=== PATIENT | male | born 1950 | race African-American/Black ===

== ENCOUNTER 2018-04-23 09:42 | Inpatient (IN) | payer OTHER, MEDICAID ==
[~2018-04-23] VITALS: Ht 175.3 cm; Wt 108.9 kg
[~2018-04-23 09:42] MED LIST: AMLO10TA2; AMLO5TAB2 PO; ASPI81CH43 GT; ATOR40TA52; DICL1GEL26; ESCI20TA51 PO; HYDR25TA4 PO; INSLANTI SC; INSU100I4 SC; INSUINJ37; LOSA50TA6 PO; PREG200C19 PO; PREG225C; TRAM50TA2
[2018-04-23] MEDS ORDERED: FUROSEMIDE 20 MG/2 ML VIAL IV ONE (10:15)
[2018-04-23 10:47] LABS: Basophils # (auto) 0 uL; Eosinophils # (auto) 0.3 uL; Lymphocytes # (auto) 1.2 uL; Monocytes # (auto) 0.8 uL; Nucleated Red Blood Cells % 0.1 %
[2018-04-23 10:49] LABS: Basophils % (auto) 0.5 % (0.0-2.0); Eosinophils % (auto) 4.2 % (0.0-7.0); Hematocrit 41.7 % (41.0-53.0); Hemoglobin 13.6 g/dL (13.5-17.5); Lymphocytes % (auto) 18.4 % (10.0-50.0); Mean Corpuscular Hemoglobin 25.5 pg (28.0-32.0); Mean Corpuscular Hgb Conc. 32.5 g/dL (32.0-36.0); Mean Corpuscular Volume 78.5 fL (80.0-100.0); Monocytes % (auto) 12.3 % (0.0-12.0); Neutrophils # (auto) 4.1 uL; Neutrophils % (auto) 64.6 % (37.0-80.0); Platelet Count (auto) 194 10^3/uL (140-450); Red Blood Cells 5.31 10^6/uL (4.5-5.90); Red Cell Distribution Width 16.9 % (11.8-14.3); White Blood Cell 6.3 10^3/uL (4.4-10.8)
[2018-04-23 11:02] LABS: INR 0.95 (0.9-1.15); Partial Thromboplastin Time 28.5 sec (23.78-33.04); Prothrombin Time 10.2 sec (9.27-12.13)
[2018-04-23 12:53] LABS: Urine Bacteria NONE SEEN /hpf (None Seen); Urine Blood Negative /uL (Negative); Urine Specific Gravity 1.006 (1.001-1.035); Urine WBC <1 /hpf (0 - 3)
[2018-04-23] MEDS ORDERED: MORPHINE SULF INJ 2 MG/ML SYRINGE 1ML IV PRN (14:45)
[2018-04-23] MEDS ORDERED: TEMAZEPAM 15 MG CAP PO PRN (14:45)
[2018-04-23] MEDS ORDERED: NITROGLYCERIN 0.4 MG SL TAB SL PRN (14:45)
[2018-04-23] MEDS ORDERED: DOCUSATE SOD 100 MG CAP PO PRN (14:45)
[2018-04-23] MEDS ORDERED: ONDANSETRON HCL 4 MG/2 ML VIAL IV PRN (14:45)
[2018-04-23] MEDS ORDERED: DEXTROSE (50%) 50ML SYRG IV PRN (14:45)
[2018-04-23] MEDS ORDERED: traMADol HCL 50 MG TAB PO PRN (15:00)
[2018-04-23 15:41] LABS: Alanine Aminotransferase 77 U/L (16-61); Albumin 3.5 g/dL (3.4-5.0); Alkaline Phosphatase 121 U/L (45-117); Anion Gap 8 (5-15); Aspartate Aminotransferase 41 U/L (15-37); BUN/Creatinine Ratio 14.7; Bilirubin, Total 0.9 mg/dL (0.2-1.0); Blood Urea Nitrogen 23 mg/dL (7-18); Calcium 8.4 mg/dL (8.5-10.1); Carbon Dioxide 24 mmol/L (21-32); Chloride 107 mmol/L (98-107); GFR African American 57 mL/min; GFR Non-African American 47 mL/min; Glucose 190 mg/dL (74-106); Potassium 3.7 mmol/L (3.5-5.1); Sodium 139 mmol/L (136-145); Total Protein 7.1 g/dL (6.4-8.2)
[2018-04-23] MEDS: SIMETHICONE 80 MG CHEWABLE TABLET PO PRN (16:31)
[2018-04-23] MEDS: ACCU-CHEK COMFORT CURVE STRIP VI SCH ×2 (16:34→22:54)
[2018-04-23] MEDS: InsuLIN REG 1unit/0.01ml Soln (100units/ml) SC SCH ×2 (16:34→22:54)
[2018-04-23 17:00] VITALS: BP 147/95
[2018-04-23 18:20] VITALS: BP 146/73
[2018-04-23] MEDS: BUDESONIDE (INHALATION) 0.5 MG/2 ML NEB NEB SCH (18:45)
[2018-04-23] MEDS: ALBUTEROL SULF 2.5 MG/0.5ML(0.5%) NEB SOLN NEB SCH (18:45)
[2018-04-23] MEDS: SODIUM CHLOR 0.9% PF (SALINE LOCK) 10ML VIAL/SYR IV SCH (22:40)
[2018-04-23] MEDS: FAMOTIDINE 20 MG TAB PO SCH (22:54)
[2018-04-23] MEDS: INSULIN LANTUS (GLARGINE) 1 /0.01ml (100units/ml) SC SCH (22:54)
[2018-04-23] MEDS: ATORVASTATIN 20 MG TAB PO SCH (22:54)
[2018-04-23] MEDS: ASCORBIC ACID 500 MG TAB PO SCH (22:54)
[2018-04-23] MEDS: PREGABALIN CAPSULE 75 MG CAP PO SCH (22:54)
[2018-04-23 22:56] VITALS: BP 168/75
[2018-04-24 04:28] VITALS: BP 156/73
[2018-04-24 04:46] VITALS: BP 144/56
[2018-04-24 05:02] LABS: Eosinophils # (auto) 0.3 uL; Monocytes # (auto) 0.8 uL; Neutrophils # (auto) 3.5 uL; Nucleated Red Blood Cells % 0.1 %
[2018-04-24 05:04] LABS: Basophils # (auto) 0.1 uL; Basophils % (auto) 0.9 % (0.0-2.0); Eosinophils % (auto) 6.1 % (0.0-7.0); Hematocrit 37.9 % (41.0-53.0); Hemoglobin 12.7 g/dL (13.5-17.5); Lymphocytes % (auto) 17.8 % (10.0-50.0); Mean Corpuscular Hgb Conc. 33.6 g/dL (32.0-36.0); Mean Corpuscular Volume 77.4 fL (80.0-100.0); Monocytes % (auto) 14.5 % (0.0-12.0); Neutrophils % (auto) 60.7 % (37.0-80.0); Platelet Count (auto) 177 10^3/uL (140-450); Red Cell Distribution Width 16.2 % (11.8-14.3); White Blood Cell 5.7 10^3/uL (4.4-10.8)
[2018-04-24 05:22] LABS: Albumin 2.7 g/dL (3.4-5.0); BUN/Creatinine Ratio 17.9; Calcium 7.9 mg/dL (8.5-10.1); Potassium 3.9 mmol/L (3.5-5.1)
[2018-04-24 05:25] LABS: Bilirubin, Total 0.8 mg/dL (0.2-1.0); Total Protein 6.1 g/dL (6.4-8.2)
[2018-04-24] MEDS: SODIUM CHLOR 0.9% PF (SALINE LOCK) 10ML VIAL/SYR IV SCH ×3 (06:17→22:40)
[2018-04-24] MEDS: InsuLIN REG 1unit/0.01ml Soln (100units/ml) SC SCH ×4 (06:17→22:39)
[2018-04-24] MEDS: ACCU-CHEK COMFORT CURVE STRIP VI SCH ×4 (06:17→22:39)
[2018-04-24] MEDS: BUDESONIDE (INHALATION) 0.5 MG/2 ML NEB NEB SCH ×2 (06:36→18:17)
[2018-04-24] MEDS: ALBUTEROL SULF 2.5 MG/0.5ML(0.5%) NEB SOLN NEB SCH ×5 (06:36→23:55)
[2018-04-24 08:00] VITALS: BP 116/54
[2018-04-24] MEDS: ZINC SULFATE 220 MG CAP PO SCH (10:00)
[2018-04-24] MEDS: POTASSIUM CHL 10 Meq TABLET PO SCH (10:00)
[2018-04-24] MEDS: MULTIPLE VITAMIN TAB PO SCH (10:00)
[2018-04-24] MEDS: LOSARTAN POTASSIUM 50 MG TAB PO SCH (10:00)
[2018-04-24] MEDS: ASCORBIC ACID 500 MG TAB PO SCH ×2 (10:00→22:37)
[2018-04-24] MEDS: PREGABALIN CAPSULE 75 MG CAP PO SCH ×2 (10:00→22:00)
[2018-04-24 12:00] VITALS: BP 136/53
[2018-04-24] MEDS ORDERED: LIDOCAINE 2% (LOCAL ANESTH.) PF 5ml SDV ONE (13:18)
[2018-04-24] MEDS ORDERED: fentaNYL CITRATE 100 MCG/2 ML VL ONE (13:27)
[2018-04-24] MEDS ORDERED: MIDAZOLAM HCL 1MG/1ML-2 ML VIAL ONE (13:27)
[2018-04-24] MEDS ORDERED: ceFAZolin 1GM/50ML 50 ML IV ONE (13:27)
[2018-04-24] MEDS ORDERED: VANCOMYCIN HCL 1000 MG VL ONE (13:27)
[2018-04-24] MEDS ORDERED: VANCOMYCIN 1GM/250ML 250 ML IV ONE (13:27)
[2018-04-24] MEDS ORDERED: methylPREDNISolone SOD SUCC 125 MG/2 ML VL ONE (13:31)
[2018-04-24] MEDS ORDERED: diphenhdrAMINE HCL 50 MG/1 ML VL ONE (13:31)
[2018-04-24] MEDS ORDERED: FAMOTIDINE (10MG/ML) 2ML VL IV ONE (13:32)
[2018-04-24 15:59] VITALS: BP 136/72
[2018-04-24] MEDS: FAMOTIDINE 20 MG TAB PO SCH ×2 (18:02→22:37)
[2018-04-24] MEDS: amLODIPine BESYLATE 5 MG TAB PO SCH (18:04)
[2018-04-24] MEDS: HCTZ 25 MG TAB PO SCH (18:04)
[2018-04-24 19:52] VITALS: BP 146/81
[2018-04-24] MEDS: SIMETHICONE 80 MG CHEWABLE TABLET PO PRN (22:37)
[2018-04-24] MEDS: VANCOMYCIN 1GM/250ML 250 ML IV SCH (22:37)
[2018-04-24] MEDS: ATORVASTATIN 20 MG TAB PO SCH (22:37)
[2018-04-24] MEDS: INSULIN LANTUS (GLARGINE) 1 /0.01ml (100units/ml) SC SCH (22:39)
[2018-04-25] VITALS: BP 140/76
[2018-04-25 04:00] VITALS: BP 134/75
[2018-04-25 04:58] LABS: Eosinophils # (auto) 0 uL; Lymphocytes # (auto) 0.4 uL; Mean Corpuscular Hgb Conc. 33.7 g/dL (32.0-36.0)
[2018-04-25 05:10] LABS: Basophils # (auto) 0 uL; Basophils % (auto) 0.2 % (0.0-2.0); Hematocrit 39.8 % (41.0-53.0); Hemoglobin 13.4 g/dL (13.5-17.5); Mean Corpuscular Hemoglobin 26.3 pg (28.0-32.0); Mean Corpuscular Volume 78.2 fL (80.0-100.0); Monocytes # (auto) 0.2 uL; Monocytes % (auto) 3.1 % (0.0-12.0); Neutrophils # (auto) 7.1 uL; Neutrophils % (auto) 91.7 % (37.0-80.0); Platelet Count (auto) 180 10^3/uL (140-450); Red Cell Distribution Width 16.4 % (11.8-14.3); White Blood Cell 7.8 10^3/uL (4.4-10.8)
[2018-04-25 06:02] LABS: BUN/Creatinine Ratio 18.2; Calcium 8.5 mg/dL (8.5-10.1); Magnesium 2.7 mg/dL (1.6-2.6); Potassium 4.1 mmol/L (3.5-5.1)
[2018-04-25] MEDS: ALBUTEROL SULF 2.5 MG/0.5ML(0.5%) NEB SOLN NEB SCH ×2 (06:25→12:10)
[2018-04-25] MEDS: BUDESONIDE (INHALATION) 0.5 MG/2 ML NEB NEB SCH (06:25)
[2018-04-25] MEDS: InsuLIN REG 1unit/0.01ml Soln (100units/ml) SC SCH ×2 (06:45→07:24)
[2018-04-25] MEDS: SODIUM CHLOR 0.9% PF (SALINE LOCK) 10ML VIAL/SYR IV SCH (06:45)
[2018-04-25] MEDS: ACCU-CHEK COMFORT CURVE STRIP VI SCH ×2 (06:45→11:30)
[2018-04-25] MEDS: PREGABALIN CAPSULE 75 MG CAP PO SCH (10:00)
[2018-04-25] MEDS: FAMOTIDINE 20 MG TAB PO SCH (10:31)
[2018-04-25] MEDS: ASCORBIC ACID 500 MG TAB PO SCH (10:31)
[2018-04-25] MEDS: VANCOMYCIN 1GM/250ML 250 ML IV SCH (10:31)
[2018-04-25] MEDS: MULTIPLE VITAMIN TAB PO SCH (10:32)
[2018-04-25] MEDS: ZINC SULFATE 220 MG CAP PO SCH (10:32)
[2018-04-25] MEDS: POTASSIUM CHL 10 Meq TABLET PO SCH (10:33)
[2018-04-25] MEDS: LOSARTAN POTASSIUM 50 MG TAB PO SCH (10:45)
[2018-04-25] MEDS: SIMETHICONE 80 MG CHEWABLE TABLET PO PRN (10:45)
[2018-04-25] MEDS: HCTZ 25 MG TAB PO SCH (10:46)
[2018-04-25] MEDS: amLODIPine BESYLATE 5 MG TAB PO SCH (10:47)
[2018-04-25 11:56] VITALS: BP 145/82
[2018-04-25] MEDS ORDERED: HYDR-4683 PO (15:07)
[2018-04-25 15:56] VITALS: BP 133/69
== END 2018-04-25 20:12 | disposition home health service (06) | DRG 226 ==
LOC: ER 09:42 → TELE 09:43 → DOU IN ICU 23:25
PROVIDERS: ADMIT Internal Medicine; ATTEND Internal Medicine
PROC: 02HK3KZ Insertion of Defibrillator Lead into Right Ventricle, Percutaneous Approach (ICD-10-PCS; principal; 2018-04-24)
PROC: 0JH608Z Insertion of Defibrillator Generator into Chest Subcutaneous Tissue and Fascia, Open Approach (ICD-10-PCS; 2018-04-24)
PROC: 02H63KZ Insertion of Defibrillator Lead into Right Atrium, Percutaneous Approach (ICD-10-PCS; 2018-04-24)
DX: I13.0 Hypertensive heart and chronic kidney disease with heart failure and stage 1 through stage 4 chronic kidney disease, or unspecified chronic kidney disease (principal); I50.43 Acute on chronic combined systolic (congestive) and diastolic (congestive) heart failure; I44.2 Atrioventricular block, complete; E66.9 Obesity, unspecified; N18.2 Chronic kidney disease, stage 2 (mild); J45.909 Unspecified asthma, uncomplicated; E11.21 Type 2 diabetes mellitus with diabetic nephropathy; E11.40 Type 2 diabetes mellitus with diabetic neuropathy, unspecified; F32.9 Major depressive disorder, single episode, unspecified; E78.5 Hyperlipidemia, unspecified; E11.22 Type 2 diabetes mellitus with diabetic chronic kidney disease; I70.0 Atherosclerosis of aorta; F41.9 Anxiety disorder, unspecified; I42.9 Cardiomyopathy, unspecified; M71.20 Synovial cyst of popliteal space [Baker], unspecified knee; Z82.3 Family history of stroke; Z82.49 Family history of ischemic heart disease and other diseases of the circulatory system; Z83.3 Family history of diabetes mellitus; Z86.73 Personal history of transient ischemic attack (TIA), and cerebral infarction without residual deficits; Z88.6 Allergy status to analgesic agent; Z91.041 Radiographic dye allergy status; Z79.4 Long term (current) use of insulin; Z79.899 Other long term (current) drug therapy; Z79.82 Long term (current) use of aspirin; Z68.35 Body mass index [BMI] 35.0-35.9, adult
CPT/HCPCS: 36415; 71045; 71046; 80048; 80053; 81001; 82962; 83036; 83735; 83880; 84436; 84443; 84484; 85025; 85379; 85610; 85730; 87081; 93005; 93306; 93970; 94640; 96374; 99152; C1769; J0690; J1815; J2250; J3490

== ENCOUNTER 2018-07-30 10:50 | Emergency (ER) | payer OTHER, MEDICAID ==
[~2018-07-30] VITALS: Ht 177.8 cm; Wt 106.6 kg
[~2018-07-30 10:50] MED LIST changes: -AMLO10TA2; +AMLO5TAB13 PO; -AMLO5TAB2 PO; -DICL1GEL26; +HYDR-4683 PO; -INSUINJ37; +LOSA-46 PO; -LOSA50TA6 PO; -PREG225C; -TRAM50TA2
[2018-07-30 11:29] VITALS: BP 156/85
== END 2018-07-30 15:39 | disposition home or self-care (01) ==
LOC: ER 10:50
DX: M79.601 Pain in right arm (principal); E11.9 Type 2 diabetes mellitus without complications; E78.5 Hyperlipidemia, unspecified; I10 Essential (primary) hypertension; Z91.041 Radiographic dye allergy status; Z79.82 Long term (current) use of aspirin; Z79.4 Long term (current) use of insulin
CPT/HCPCS: 93971

== ENCOUNTER 2021-01-05 06:35 | Inpatient (IN) | payer OTHER, MEDICAID ==
[~2021-01-05] VITALS: Ht 177.8 cm; Wt 116.0 kg
[~2021-01-05 06:35] MED LIST changes: +AMLO-489 PO; -AMLO5TAB13 PO; +CAR3125T PO; +ESCI-34 PO; -ESCI20TA51 PO; +FURO20TA3 PO; -HYDR-4683 PO; +HYDR-4833 PO; -HYDR25TA4 PO; -LOSA-46 PO; +LOSA-69 PO; +POTA-220 PO; +TRAM50TA2 PO
[2021-01-05] MEDS ORDERED: ACCU-CHEK COMFORT CURVE STRIP VI ONE (06:45)
[2021-01-05 07:14] LABS: Basophils # (auto) 0.1 10 ^3/uL (0-0.2); Eosinophils # (auto) 0.4 10 ^3/uL (0-0.8); Eosinophils % (auto) 6.4 % (0.0-7.0); Lymphocytes # (auto) 1.1 10 ^3/uL (0.4-5.4); Mean Corpuscular Volume 78.6 fL (80.0-100.0); Monocytes # (auto) 0.7 10 ^3/uL (0-1.3); White Blood Cell 6.3 10^3/uL (4.4-10.8)
[2021-01-05] MEDS ORDERED: ASPirin 81 mg TAB PO ONE (07:15)
[2021-01-05] MEDS ORDERED: NITROGLYCERIN 0.4 MG SL TAB SL ONE (07:15)
[2021-01-05] MEDS ORDERED: SODIUM CHLORIDE 0.9% 1,000 ML IV ONE (07:15)
[2021-01-05 07:16] LABS: Basophils % (auto) 1.2 % (0.0-2.0); Hematocrit 40.3 % (41.0-53.0); Hemoglobin 13.4 g/dL (13.5-17.5); Lymphocytes % (auto) 17.8 % (10.0-50.0); Mean Corpuscular Hemoglobin 26.2 pg (28.0-32.0); Mean Corpuscular Hgb Conc. 33.3 g/dL (32.0-36.0); Monocytes % (auto) 11.3 % (0.0-12.0); Neutrophils % (auto) 63.3 % (37.0-80.0); Red Blood Cells 5.13 10^6/uL (4.5-5.90); Red Cell Distribution Width 15.7 % (11.8-14.3)
[2021-01-05 07:29] LABS: Albumin 3.2 g/dL (3.4-5.0); Anion Gap 7 (5-15); Blood Urea Nitrogen 24 mg/dL (7-18); Calcium 8.4 mg/dL (8.5-10.1); Carbon Dioxide 23 mmol/L (21-32); Chloride 109 mmol/L (98-107); Glucose 154 mg/dL (74-106); Sodium 139 mmol/L (136-145)
[2021-01-05 07:40] LABS: Alanine Aminotransferase 36 U/L (16-61); Alkaline Phosphatase 187 U/L (45-117); Aspartate Aminotransferase 37 U/L (15-37); BUN/Creatinine Ratio 16.4; Bilirubin, Total 0.7 mg/dL (0.2-1.0); GFR African American 61 mL/min; GFR Non-African American 50 mL/min; Total Protein 7.8 g/dL (6.4-8.2)
[2021-01-05] MEDS: MORPHINE SULFATE 4 MG/ML SYR/VIAL IV PRN ×3 (07:53→21:00)
[2021-01-05 08:32] LABS: Urine WBC None Seen /hpf (0 - 3)
[2021-01-05 08:52] LABS: Urine Bacteria NONE SEEN /hpf (None Seen); Urine Blood Negative /uL (Negative); Urine Specific Gravity 1.007 (1.001-1.035)
[2021-01-05] MEDS ORDERED: PROMETHAZINE HCL 25 MG/ML 1ML IV ONE (11:30)
[2021-01-05] MEDS: HYDROcodone-ACET 5/325MG TAB PO PRN (15:00)
[2021-01-05] MEDS ORDERED: MORPHINE SULFATE INJECTION 2 MG/ML SYRG IV PRN (15:00)
[2021-01-05] MEDS ORDERED: ONDANSETRON HCL 4 MG/2 ML VIAL IV PRN (15:00)
[2021-01-05] MEDS ORDERED: DEXTROSE (50%) 50ML SYRG IV PRN (15:00)
[2021-01-05] MEDS ORDERED: NITROGLYCERIN 0.4 MG SL TAB SL PRN (15:00)
[2021-01-05] MEDS ORDERED: ACETAMINOPHEN 500 MG TAB PO ONE (15:30)
[2021-01-05] MEDS: InsuLIN REG 1unit/0.01ml Soln (100units/ml) SC SCH ×2 (17:37→21:58)
[2021-01-05] MEDS: ACCU-CHEK COMFORT CURVE STRIP VI SCH ×2 (17:37→22:01)
[2021-01-05] MEDS: PREGABALIN CAPSULE 75 MG CAP PO SCH (21:43)
[2021-01-05] MEDS: traMADol HCL 50 MG TAB PO SCH (21:43)
[2021-01-05] MEDS: CARVEDILOL 3.125 MG TAB PO SCH (21:43)
[2021-01-05 22:00] VITALS: BP 138/92
[2021-01-05] MEDS ORDERED: INSULIN LANTUS (GLARGINE) 1 /0.01ml (100units/ml) SC SCH (22:00)
[2021-01-05] MEDS ORDERED: PREGABALIN 225 MG PO SCH (22:00)
[2021-01-05 23:07] VITALS: BP 151/75
[2021-01-05] MEDS ORDERED: PREG75CA PO (23:27)
[2021-01-06 05:00] VITALS: BP 126/75
[2021-01-06] MEDS: MORPHINE SULFATE 4 MG/ML SYR/VIAL IV PRN ×4 (05:30→21:30)
[2021-01-06] MEDS: ACCU-CHEK COMFORT CURVE STRIP VI SCH ×4 (05:32→21:41)
[2021-01-06] MEDS: InsuLIN REG 1unit/0.01ml Soln (100units/ml) SC SCH ×4 (06:22→21:35)
[2021-01-06] MEDS: PREGABALIN CAPSULE 75 MG CAP PO SCH ×3 (06:23→21:32)
[2021-01-06] MEDS: INSULIN LANTUS (GLARGINE) 1 /0.01ml (100units/ml) SC SCH (06:23)
[2021-01-06 09:00] VITALS: BP 156/92
[2021-01-06] MEDS: ASPirin 81 mg TAB GT SCH (09:37)
[2021-01-06] MEDS: traMADol HCL 50 MG TAB PO SCH ×2 (09:38→21:32)
[2021-01-06] MEDS: FUROSEMIDE 20 MG TAB PO SCH (09:39)
[2021-01-06] MEDS: CARVEDILOL 3.125 MG TAB PO SCH ×2 (09:40→21:32)
[2021-01-06] MEDS: amLODIPine BESYLATE 5 MG TAB PO SCH (09:41)
[2021-01-06] MEDS: diphenhdrAMINE HCL 25 MG CAP PO PRN (09:41)
[2021-01-06] MEDS: LOSARTAN POTASSIUM 50 MG TAB PO SCH (09:41)
[2021-01-06] MEDS: ATORVASTATIN 20 MG TAB PO SCH (09:42)
[2021-01-06] MEDS ORDERED: POTASSIUM CHL 20 Meq TABLET PO SCH (10:00)
[2021-01-06] MEDS ORDERED: PERCOT PO (10:53)
[2021-01-06 12:58] VITALS: BP 119/59
[2021-01-06] MEDS: HYDROcodone-ACET 5/325MG TAB PO PRN (15:14)
[2021-01-06 16:53] VITALS: BP 142/72
[2021-01-06 17:00] VITALS: BP 142/72
[2021-01-06] MEDS ORDERED: LORazepam 2MG/ML-1ML VIAL IV PRN (19:30)
[2021-01-06 22:00] VITALS: BP 112/68
[2021-01-07] MEDS: diphenhdrAMINE HCL 25 MG CAP PO PRN (04:02)
[2021-01-07] MEDS: MORPHINE SULFATE 4 MG/ML SYR/VIAL IV PRN ×3 (04:02→17:08)
[2021-01-07 05:00] VITALS: BP 133/79
[2021-01-07] MEDS: ACCU-CHEK COMFORT CURVE STRIP VI SCH ×4 (05:42→22:00)
[2021-01-07] MEDS: PREGABALIN CAPSULE 75 MG CAP PO SCH ×3 (06:00→22:34)
[2021-01-07] MEDS: InsuLIN REG 1unit/0.01ml Soln (100units/ml) SC SCH ×4 (06:54→22:00)
[2021-01-07] MEDS: INSULIN LANTUS (GLARGINE) 1 /0.01ml (100units/ml) SC SCH (06:54)
[2021-01-07 08:30] VITALS: BP 126/68
[2021-01-07] MEDS: ASPirin 81 mg TAB GT SCH (10:29)
[2021-01-07] MEDS: CARVEDILOL 3.125 MG TAB PO SCH ×2 (10:29→22:34)
[2021-01-07] MEDS: LOSARTAN POTASSIUM 50 MG TAB PO SCH (10:30)
[2021-01-07] MEDS: ATORVASTATIN 20 MG TAB PO SCH (10:30)
[2021-01-07] MEDS: FUROSEMIDE 20 MG TAB PO SCH (10:30)
[2021-01-07] MEDS: amLODIPine BESYLATE 5 MG TAB PO SCH (10:31)
[2021-01-07] MEDS: traMADol HCL 50 MG TAB PO SCH ×2 (10:31→22:35)
[2021-01-07] MEDS ORDERED: ACYCLOVIR 10MG/KG Q8HR PER RX 0 ML IV SCH (12:00)
[2021-01-07 12:30] VITALS: BP 128/65
[2021-01-07 12:43] LABS: INR 0.98 (0.9-1.15)
[2021-01-07] MEDS: ACYCLOVIR SOD 50MG/ML 750 MG in SODIUM CHL 0.9% 250 ML IV SCH ×2 (15:17→22:33)
[2021-01-07] MEDS ORDERED: LIDOCAINE 2%HCL (LOCAL ANESTH.) INJ 20ML MDV ONE (16:23)
[2021-01-07 16:31] VITALS: BP 149/94
[2021-01-07] MEDS ORDERED: LIDOCAINE 2%HCL (LOCAL ANESTH.) INJ 10ml MDV IJ ONE (17:00)
[2021-01-07 17:58] LABS: CSF White Blood Cells 1 CUMM (0-5)
[2021-01-07] MEDS ORDERED: VALA1TAB34 PO (18:37)
[2021-01-07 22:00] VITALS: BP 118/67
[2021-01-07] MEDS ORDERED: ERYTHROMY OPTH OINT 5mg/gm 1gm OP ONE (22:00)
[2021-01-08] MEDS: MORPHINE SULFATE 4 MG/ML SYR/VIAL IV PRN ×2 (01:30→05:59)
[2021-01-08 05:00] VITALS: BP 151/87
[2021-01-08] MEDS: INSULIN LANTUS (GLARGINE) 1 /0.01ml (100units/ml) SC SCH (05:55)
[2021-01-08] MEDS: PREGABALIN CAPSULE 75 MG CAP PO SCH ×2 (05:55→14:00)
[2021-01-08] MEDS: ACCU-CHEK COMFORT CURVE STRIP VI SCH ×2 (05:56→12:14)
[2021-01-08] MEDS: ACYCLOVIR SOD 50MG/ML 750 MG in SODIUM CHL 0.9% 250 ML IV SCH ×2 (05:57→14:00)
[2021-01-08] MEDS: InsuLIN REG 1unit/0.01ml Soln (100units/ml) SC SCH ×2 (05:57→12:14)
[2021-01-08 08:15] VITALS: BP 138/77
[2021-01-08 09:00] VITALS: BP 138/77
[2021-01-08] MEDS: ASPirin 81 mg TAB GT SCH (11:12)
[2021-01-08] MEDS: CARVEDILOL 3.125 MG TAB PO SCH (11:14)
[2021-01-08] MEDS: FUROSEMIDE 20 MG TAB PO SCH (11:15)
[2021-01-08] MEDS: ATORVASTATIN 20 MG TAB PO SCH (11:15)
[2021-01-08] MEDS: LOSARTAN POTASSIUM 50 MG TAB PO SCH (11:15)
[2021-01-08] MEDS: traMADol HCL 50 MG TAB PO SCH (11:16)
[2021-01-08] MEDS: amLODIPine BESYLATE 5 MG TAB PO SCH (11:16)
[2021-01-08 13:00] VITALS: BP 140/80
== END 2021-01-08 15:55 | disposition home health service (06) | DRG 125 ==
LOC: ER 06:35 → TELE 06:36 → TELE-WESTW 19:50
PROVIDERS: ADMIT Internal Medicine; ATTEND Internal Medicine
PROC: 4B02XSZ Measurement of Cardiac Pacemaker, External Approach (ICD-10-PCS; 2021-01-06)
PROC: 009U3ZX Drainage of Spinal Canal, Percutaneous Approach, Diagnostic (ICD-10-PCS; principal; 2021-01-07)
PROC: B01B1ZZ Fluoroscopy of Spinal Cord using Low Osmolar Contrast (ICD-10-PCS; 2021-01-07)
DX: B02.30 Zoster ocular disease, unspecified (principal); E44.1 Mild protein-calorie malnutrition; H53.129 Transient visual loss, unspecified eye; G43.909 Migraine, unspecified, not intractable, without status migrainosus; E03.9 Hypothyroidism, unspecified; E11.40 Type 2 diabetes mellitus with diabetic neuropathy, unspecified; F41.9 Anxiety disorder, unspecified; E11.22 Type 2 diabetes mellitus with diabetic chronic kidney disease; E78.5 Hyperlipidemia, unspecified; G40.909 Epilepsy, unspecified, not intractable, without status epilepticus; K21.9 Gastro-esophageal reflux disease without esophagitis; F32.9 Major depressive disorder, single episode, unspecified; I12.9 Hypertensive chronic kidney disease with stage 1 through stage 4 chronic kidney disease, or unspecified chronic kidney disease; J45.909 Unspecified asthma, uncomplicated; N18.9 Chronic kidney disease, unspecified; Z20.822 Contact with and (suspected) exposure to COVID-19; Z79.4 Long term (current) use of insulin; Z86.73 Personal history of transient ischemic attack (TIA), and cerebral infarction without residual deficits; Z79.82 Long term (current) use of aspirin; Z79.899 Other long term (current) drug therapy; Z82.3 Family history of stroke; Z83.3 Family history of diabetes mellitus; Z82.49 Family history of ischemic heart disease and other diseases of the circulatory system; Z95.810 Presence of automatic (implantable) cardiac defibrillator; Z91.041 Radiographic dye allergy status
CPT/HCPCS: 36415; 62272; 70450; 70545; 70551; 71045; 80053; 81001; 82945; 82962; 83735; 84157; 84443; 84484; 85025; 85610; 87070; 87205; 87426; 87529; 88108; 89051; 93005; 93306; 96361; 96374; 96375; G0378; J1815; J2001

== ENCOUNTER 2021-01-19 09:28 | Emergency (ER) | payer OTHER, MEDICAID ==
[~2021-01-19] VITALS: Ht 177.8 cm; Wt 106.1 kg
[~2021-01-19 09:28] MED LIST changes: -AMLO-489 PO; -HYDR-4833 PO; +PERCOT PO; -PREG200C19 PO; -TRAM50TA2 PO; +VALA1TAB34 PO
[2021-01-19] MEDS ORDERED: GABAPENTIN 300 MG CAP PO ONE (11:45)
[2021-01-19 12:00] VITALS: BP 147/82
== END 2021-01-19 13:26 | disposition home or self-care (01) ==
LOC: ER 09:28
DX: I10 Essential (primary) hypertension (principal); B02.29 Other postherpetic nervous system involvement; I12.9 Hypertensive chronic kidney disease with stage 1 through stage 4 chronic kidney disease, or unspecified chronic kidney disease; E11.22 Type 2 diabetes mellitus with diabetic chronic kidney disease; N18.9 Chronic kidney disease, unspecified; F41.9 Anxiety disorder, unspecified; E78.5 Hyperlipidemia, unspecified; Z86.73 Personal history of transient ischemic attack (TIA), and cerebral infarction without residual deficits; Z95.0 Presence of cardiac pacemaker; Z79.899 Other long term (current) drug therapy; Z79.82 Long term (current) use of aspirin; Z88.8 Allergy status to other drugs, medicaments and biological substances
CPT/HCPCS: 93005

== ENCOUNTER 2021-01-22 12:15 | Emergency (ER) | payer OTHER, MEDICAID ==
[~2021-01-22] VITALS: Ht 177.8 cm; Wt 106.1 kg
[2021-01-22] MEDS ORDERED: SODIUM CHLORIDE 0.9% 1,000 ML IV ONE (12:30)
[2021-01-22] MEDS ORDERED: HYDROmorphone HCL 2 MG/ML VL IV ONE (13:30)
[2021-01-22] MEDS ORDERED: carBAMazepine 200 MG TAB PO ONE (13:30)
[2021-01-22 13:40] LABS: Eosinophils # (auto) 0.4 10 ^3/uL (0-0.8); Monocytes # (auto) 0.6 10 ^3/uL (0-1.3); Neutrophils # (auto) 4.7 10 ^3/uL (1.6-8.6); Nucleated Red Blood Cells % 0.1 %
[2021-01-22 13:43] LABS: Basophils # (auto) 0 10 ^3/uL (0-0.2); Basophils % (auto) 0.7 % (0.0-2.0); Eosinophils % (auto) 5.7 % (0.0-7.0); Hematocrit 37.4 % (41.0-53.0); Hemoglobin 12.6 g/dL (13.5-17.5); Lymphocytes # (auto) 1.2 10 ^3/uL (0.4-5.4); Lymphocytes % (auto) 17.7 % (10.0-50.0); Mean Corpuscular Hemoglobin 26.9 pg (28.0-32.0); Mean Corpuscular Hgb Conc. 33.8 g/dL (32.0-36.0); Mean Corpuscular Volume 79.5 fL (80.0-100.0); Monocytes % (auto) 8.8 % (0.0-12.0); Neutrophils % (auto) 67.1 % (37.0-80.0); Platelet Count (auto) 199 10^3/uL (140-450); Red Blood Cells 4.71 10^6/uL (4.5-5.90); Red Cell Distribution Width 16.1 % (11.8-14.3); White Blood Cell 6.9 10^3/uL (4.4-10.8)
[2021-01-22 14:09] LABS: Albumin 2.9 g/dL (3.4-5.0); Calcium 8.3 mg/dL (8.5-10.1); Magnesium 2.5 mg/dL (1.6-2.6); Potassium 3.9 mmol/L (3.5-5.1)
[2021-01-22 14:13] LABS: BUN/Creatinine Ratio 13.7; Bilirubin, Total 0.5 mg/dL (0.2-1.0); Total Protein 6.6 g/dL (6.4-8.2)
[2021-01-22 15:00] VITALS: BP 141/81
[2021-01-22 16:14] LABS: Urine Bacteria NONE SEEN /hpf (None Seen); Urine Blood Negative /uL (Negative); Urine Specific Gravity 1.022 (1.001-1.035); Urine WBC 1 /hpf (0 - 3)
== END 2021-01-22 16:06 | disposition home or self-care (01) ==
LOC: ER 12:15
DX: I10 Essential (primary) hypertension (principal); E11.65 Type 2 diabetes mellitus with hyperglycemia; G50.0 Trigeminal neuralgia; B02.29 Other postherpetic nervous system involvement; E44.0 Moderate protein-calorie malnutrition; Z68.33 Body mass index [BMI] 33.0-33.9, adult; Z95.810 Presence of automatic (implantable) cardiac defibrillator
CPT/HCPCS: 36415; 71046; 80053; 81001; 83735; 84443; 85025; 93005; 96361; 96374; 99284; J1170; J7030

== ENCOUNTER 2021-02-23 09:34 | Emergency (ER) | payer OTHER, MEDICAID ==
[~2021-02-23] VITALS: Ht 177.8 cm; Wt 106.6 kg
[2021-02-23] MEDS ORDERED: LABETALOL HCL 5 MG/ML 4ML SYRINGE IV ONE (10:00)
[2021-02-23 10:33] LABS: Basophils # (auto) 0.1 10 ^3/uL (0-0.2); Basophils % (auto) 0.7 % (0.0-2.0); Eosinophils # (auto) 0.3 10 ^3/uL (0-0.8); Eosinophils % (auto) 4.9 % (0.0-7.0); Hematocrit 40.9 % (41.0-53.0); Hemoglobin 13.6 g/dL (13.5-17.5); Mean Corpuscular Hemoglobin 26.8 pg (28.0-32.0); Mean Corpuscular Hgb Conc. 33.3 g/dL (32.0-36.0); Mean Corpuscular Volume 80.6 fL (80.0-100.0); Monocytes # (auto) 0.7 10 ^3/uL (0-1.3); Neutrophils % (auto) 70.4 % (37.0-80.0); Nucleated Red Blood Cells % 0.1 %; Platelet Count (auto) 220 10^3/uL (140-450); Red Blood Cells 5.07 10^6/uL (4.5-5.90); Red Cell Distribution Width 18.2 % (11.8-14.3); White Blood Cell 7.1 10^3/uL (4.4-10.8)
[2021-02-23 10:51] LABS: Albumin 3.3 g/dL (3.4-5.0); Anion Gap 6 (5-15); Blood Urea Nitrogen 18 mg/dL (7-18); Calcium 8.3 mg/dL (8.5-10.1); Carbon Dioxide 23 mmol/L (21-32); Chloride 110 mmol/L (98-107); Glucose 103 mg/dL (74-106); Potassium 3.9 mmol/L (3.5-5.1); Sodium 139 mmol/L (136-145)
[2021-02-23 10:57] LABS: Alanine Aminotransferase 67 U/L (16-61); Alkaline Phosphatase 168 U/L (45-117); Aspartate Aminotransferase 33 U/L (15-37); BUN/Creatinine Ratio 14.1; Bilirubin, Total 0.6 mg/dL (0.2-1.0); GFR African American 71 mL/min; GFR Non-African American 59 mL/min; Total Protein 6.9 g/dL (6.4-8.2)
[2021-02-23] MEDS ORDERED: hydrALAZINE HCL 20 MG/ML VL IV ONE (12:00)
[2021-02-23] MEDS ORDERED: PROMETHAZINE HCL 25 MG/ML 1ML IV ONE (12:00)
[2021-02-23] MEDS ORDERED: MORPHINE SULF INJ 2 MG/ML SYRINGE 1ML IV ONE (12:00)
[2021-02-23 12:36] VITALS: BP 153/82
== END 2021-02-23 14:33 | disposition home or self-care (01) ==
LOC: ER 09:34
DX: B02.29 Other postherpetic nervous system involvement (principal); I13.0 Hypertensive heart and chronic kidney disease with heart failure and stage 1 through stage 4 chronic kidney disease, or unspecified chronic kidney disease; E11.22 Type 2 diabetes mellitus with diabetic chronic kidney disease; N18.9 Chronic kidney disease, unspecified; I50.9 Heart failure, unspecified; R51.9 Headache, unspecified; M19.90 Unspecified osteoarthritis, unspecified site; M79.7 Fibromyalgia; F41.9 Anxiety disorder, unspecified; F32.9 Major depressive disorder, single episode, unspecified; E78.5 Hyperlipidemia, unspecified; Z95.810 Presence of automatic (implantable) cardiac defibrillator; Z95.0 Presence of cardiac pacemaker; Z86.73 Personal history of transient ischemic attack (TIA), and cerebral infarction without residual deficits; Z79.899 Other long term (current) drug therapy; Z88.8 Allergy status to other drugs, medicaments and biological substances
CPT/HCPCS: 36415; 80053; 84484; 85025; 93005; 96374; 96375; 99283; J0360; J2270; J2550

== ENCOUNTER 2021-07-29 00:05 | Emergency (ER) | payer OTHER, MEDICAID ==
[~2021-07-29] VITALS: Ht 167.6 cm; Wt 104.8 kg
[2021-07-29 01:15] LABS: Basophils # (auto) 0 10 ^3/uL (0-0.2); Basophils % (auto) 0.4 % (0.0-2.0); Eosinophils # (auto) 0.3 10 ^3/uL (0-0.8); Eosinophils % (auto) 4.1 % (0.0-7.0); Hematocrit 37.5 % (41.0-53.0); Hemoglobin 12.7 g/dL (13.5-17.5); Lymphocytes # (auto) 1.1 10 ^3/uL (0.4-5.4); Lymphocytes % (auto) 16.7 % (10.0-50.0); Mean Corpuscular Hemoglobin 27.3 pg (28.0-32.0); Mean Corpuscular Hgb Conc. 33.9 g/dL (32.0-36.0); Mean Corpuscular Volume 80.7 fL (80.0-100.0); Monocytes # (auto) 0.8 10 ^3/uL (0-1.3); Monocytes % (auto) 11.7 % (0.0-12.0); Neutrophils # (auto) 4.5 10 ^3/uL (1.6-8.6); Neutrophils % (auto) 67.1 % (37.0-80.0); Nucleated Red Blood Cells % 0.1 %; Red Blood Cells 4.65 10^6/uL (4.5-5.90); Red Cell Distribution Width 15.1 % (11.8-14.3); White Blood Cell 6.8 10^3/uL (4.4-10.8)
[2021-07-29 01:21] LABS: INR 1.01 (0.9-1.15); Partial Thromboplastin Time 23.9 sec (23.6-33.0)
[2021-07-29 01:29] LABS: Albumin 3.1 g/dL (3.4-5.0); Anion Gap 13 (5-15); BUN/Creatinine Ratio 23.9; Blood Urea Nitrogen 49 mg/dL (7-18); Calcium 9.3 mg/dL (8.5-10.1); Carbon Dioxide 19 mmol/L (21-32); Chloride 106 mmol/L (98-107); GFR African American 41 mL/min; GFR Non-African American 34 mL/min; Magnesium 1.9 mg/dL (1.6-2.6); Potassium 4.3 mmol/L (3.5-5.1); Sodium 138 mmol/L (136-145)
[2021-07-29 01:39] LABS: Alanine Aminotransferase 30 U/L (16-61); Alkaline Phosphatase 144 U/L (45-117); Aspartate Aminotransferase 17 U/L (15-37); Bilirubin, Total 0.6 mg/dL (0.2-1.0); Blood Alcohol < 3.0 mg/dL (0-5); Total Protein 7.3 g/dL (6.4-8.2)
[2021-07-29 01:45] LABS: Glucose 462 mg/dL (74-106)
[2021-07-29] MEDS ORDERED: SODIUM CHLORIDE 0.9% 500 ML IV ONE (01:45)
[2021-07-29] MEDS ORDERED: InsuLIN REG 1unit/0.01ml Soln (100units/ml) SC ONE (02:00)
[2021-07-29 05:12] VITALS: BP 131/75
== END 2021-07-29 05:32 | disposition short-term general hospital (02) ==
LOC: ER 00:05 → EDBD 00:05 → ER 05:32
DX: R41.82 Altered mental status, unspecified (principal); R53.1 Weakness; I12.9 Hypertensive chronic kidney disease with stage 1 through stage 4 chronic kidney disease, or unspecified chronic kidney disease; E11.22 Type 2 diabetes mellitus with diabetic chronic kidney disease; E11.65 Type 2 diabetes mellitus with hyperglycemia; N18.9 Chronic kidney disease, unspecified; E78.5 Hyperlipidemia, unspecified; Z86.73 Personal history of transient ischemic attack (TIA), and cerebral infarction without residual deficits; Z95.0 Presence of cardiac pacemaker; Z79.4 Long term (current) use of insulin; Z79.82 Long term (current) use of aspirin; Z79.899 Other long term (current) drug therapy; Z88.8 Allergy status to other drugs, medicaments and biological substances; Z20.822 Contact with and (suspected) exposure to COVID-19
CPT/HCPCS: 36415; 70450; 71045; 80053; 80320; 82962; 83735; 83880; 84484; 85025; 85379; 85610; 85730; 87426; 93005; 96360; 96372; 99284; J1815; J7040